=== PATIENT | female | born 1945 | race Caucasian/White ===

== ENCOUNTER 2018-08-31 10:33 | Day surgery (SDC) | payer MEDICARE, SELFPAY ==
--- NOTE | 2018-08-31 | PATH_ITS ---
[facility] Accession Number: [id number] . 01 Material submitted: . ESOPHAGEAL BIOPSY . 02 Diagnosis: Esophageal Biopsies: Multiple fragments of squamous epithelium, negative for significant atypia. Negative for intraepithelial eosinophils. [facility]/09/01/2018 . 02 Electronically signed: . Danny Greene MD, Pathologist NPI- [id number] . 01 Gross description: . ESOPHAGEAL BIOPSY: Received in formalin are multiple fragment(s) of aviles, soft tissue measuring 0.5 x 0.3 x 0.1 cm in aggregate submitted entirely in 1 cassette(s) /CKI /CKI . 02 Pathologist provided ICD-10: R13.10 . 02 CPT . 729317 Performed at: 01 [facility] [address] [place] [address], [place], [place] [id number] MD Casey Cerad MD Phone: [phone] Performed at: 02 [facility] [address] [place], [place] [id number] MD Ana Pate MD Phone: [phone]
[2018-08-31 11:24] VITALS: BP 140/75; PULSE 91; RESP 12; TEMP 36.3; O2SAT 98; BMI 32.0
--- NOTE | 2018-08-31 11:34 | P.HP_ITS ---
History of Present Illness Date Patient Seen: 08/31/18 Chief complaint: colonoscopy [id number] Narrative: 72-year-old female with history of esophageal dysphagia who is here for further evaluation and also for colon cancer screening. Please refer to our office note 07/26/2018 for further details. The patient has had no significant changes to her clinical exam since that office visit. Meds Home Medications Medication Instructions Recorded Confirmed Type atenolol 25 mg PO DAILY 08/31/18 08/31/18 History Allergies Allergy/AdvReac Type Severity Reaction Status Date / Time Sulfa (Sulfonamide Allergy Unknown Verified 08/31/18 11:46 Antibiotics) Review of Systems Review of Systems All systems reviewed & are unremarkable except as noted in HPI and below Exam Narrative Exam Narrative: General: Patient is obese, not in apparent distress Cardiovascular: Regular rate and rhythm, no murmurs, rubs, or gallops; no evidence of edema; no palpable abdominal aortic aneurysm Gastrointestinal: Normoactive bowel sounds, soft, nontender, nondistended, no rebound tenderness, no hepatosplenomegaly, no evidence of hernia Assessment & Plan Plan: Assessment/Plan Narrative: 72-year-old female with history of esophageal dysphagia was here for EGD with possible biopsies or dilation. She is also here for colon cancer screening as her last colonoscopy was performed in September 2007 and was unremarkable. Regarding the procedure(s), the risks and potential complications, benefits, and alternatives (including not doing the procedure) were discussed with the patient. The risks include but are not limited to bleeding, splenic injury, infection, perforation which may require surgical intervention, missed lesions, and adverse reactions to sedative medicines. After a question and answer period , the patient agreed to proceed with the procedure(s) and gives informed consent.
[2018-08-31] MEDS: SODIUM CHLORIDE 0.9% 1,000 ML 70 ML IV (11:45)
[2018-08-31 11:48] VITALS: BMI 32.0
[2018-08-31] MEDS: TETRACAINE/BENZOCAINE/BUTAMBEN (CETACAINE) BOTTLE 1 SPRAY TOP (12:31)
--- NOTE | 2018-08-31 12:32 | PM.OP.ENDO ---
Operative Date/Time/Diagnoses Date of procedure: 08/31/18 Procedure Notes Procedure in detail: Surgeon: Bhupendra Lujan MD Procedure: Esophagogastroduodenoscopy with biopsy and colonoscopy Preoperative diagnosis: Esophageal dysphagia; average risk colon cancer screening (last colonoscopy 2007) Postoperative diagnosis: Normal esophagus status post biopsy, 7 cm hiatal hernia, grade 2 internal hemorrhoids; esophageal dysphagia appears related to reflux given findings of her large hiatal hernia. Medications: Conscious sedation using 6 mg IV of Midazolam and 100 mcg IV of Fentanyl (total for both procedures); 5 mg IV of midazolam and 100 mcg IV of fentanyl for EGD Preanesthesia Assessment An H and P was performed/updated and the Px?s ASA class is 2. The procedure was discussed in detail with the patient. The potential risks and complications including infection, bleeding, missed lesions, perforation, need for surgery in case of perforation, prolonged hospital stay, and were explained. A brief question and answer period was allotted and once all questions were answered, informed consent was obtained. The patient was brought back to the procedure room and placed on standard monitoring. The patient?s vital signs were monitored continuously throughout the entire procedure. Prior to starting, a timeout was performed to confirm the patient?s identity, allergies, medications, and procedure. Procedure in detail The patient was placed in left lateral decubitus position and a bite block was inserted. The tip of the upper endoscope was placed into the mouth and advanced without difficulty under direct visualization into the esophagus. Esophagus: The entire esophagus appeared normal. Biopsies were taken from the mid and proximal esophagus to rule out eosinophilic esophagitis, with minimal bleeding. Stomach: There was evidence of a 7 cm hiatal hernia (34 cm to 41 cm from incisors), the gastric lumen was otherwise empty and the mucosa appeared normal Duodenum: The examined small bowel all the way to the 2nd portion of the duodenum appeared normal After the upper endoscopy, preparations were made for the colonoscopy. Once adequate sedation was obtained a JANET was performed. The digital rectal examination did not reveal any palpable lesions. The tip of the colonoscope was placed in the anal canal and advanced without difficulty all the way to the cecum which was identified by the appendiceal orifice and the ileocecal valve. The terminal ileum was intubated to distance of 5 cm from the ileocecal valve and the mucosa appeared normal. The colonoscope was brought back to cecum and careful examination of all hugo of the colon was performed with irrigation of any residual stool. The mucosa appeared normal throughout the entire colon. There was no evidence of polyps. Retroflexion was performed in the rectum which revealed grade 2 internal hemorrhoids. The patient tolerated the procedure well and will be brought back to the recovery area to be discharged once criteria are met. The prep was judged to be good and adequate to identify polyps less than 5 mm. The withdrawal time was 7 min. The total physician intraservice time was 28 min. Complications There were no complications and estimated blood loss was minimal. Recommendations Resume previous diet Anti-reflux measures at all times Continue outpatient medications Follow-up pathology results Repeat colonoscopy in 10 years for repeat screening. This would be dependent on health issues at that time Follow-up with me at our office if with persistent swallowing issues An emergency contact number was given to the patient for any complications related to the procedure
[2018-08-31] MEDS: MIDAZOLAM 5 MG/5 ML VIAL IV (12:45)
[2018-08-31] MEDS: fentaNYL 250 MCG/5 ML INJ IV (12:46)
[2018-08-31 12:59] VITALS: BP 120/65; PULSE 76; RESP 17; TEMP 37; O2SAT 97
--- NOTE | 2018-08-31 13:02 | PM.DS.1 ---
History of Present Illness Chief complaint: colonoscopy [id number] [phone] Narrative: 72-year-old female with history of esophageal dysphagia who is here for further evaluation and also for colon cancer screening. Please refer to our office note 07/26/2018 for further details. The patient has had no significant changes to her clinical exam since that office visit. Discharge Providers Discharge provider: Bhupendra Lujan MD Discharge Date: 08/31/18 Exam Vital Signs (past 8 hours): - 08/31/18 11:24 Temperature 97.4 F L Pulse Rate 91 H Respiratory Rate 12 Blood Pressure 140/75 Pulse Oximetry 98 Oxygen Delivery Method Room Air Narrative Exam Narrative: General: Patient is obese, not in apparent distress Cardiovascular: Regular rate and rhythm, no murmurs, rubs, or gallops; no evidence of edema; no palpable abdominal aortic aneurysm Gastrointestinal: Normoactive bowel sounds, soft, nontender, nondistended, no rebound tenderness, no hepatosplenomegaly, no evidence of hernia Discharge Plan Discharge Plan Patient Disposition: Home Discharge Med Rec/Prescriptions Prescriptions: Continue atenolol 25 mg Tablet 25 mg PO DAILY RF: 0 Discharge Orders: Discharge (Order); Ordered 08/31/18 Ordered By: Bhupendra Lujan Provider Discharge Instructions Diet: Diet as Tolerated Visit Report/Discharge Packet Stand Alone Forms: Surgery Discharge Discharge Data Attending Provider: Bhupendra Lujan
[2018-08-31 13:04] VITALS: BP 115/64; PULSE 74; RESP 16; O2SAT 97
[2018-08-31 13:09] VITALS: BP 119/69; PULSE 73; RESP 14; O2SAT 97
[2018-08-31 13:30] VITALS: BP 115/60; PULSE 69; RESP 16; TEMP 36.3; O2SAT 100
== END 2018-08-31 13:40 | disposition home or self-care (01) ==
PROVIDERS: Visit Provider Internal Medicine Gastroenterology
PROC: 0DJ08ZZ Inspection of Upper Intestinal Tract, Via Natural or Artificial Opening Endoscopic (ICD-10-PCS; CPT 43235; principal; 2018-08-31 12:30)
PROC: 0DJD8ZZ Inspection of Lower Intestinal Tract, Via Natural or Artificial Opening Endoscopic (ICD-10-PCS; CPT 45378; 2018-08-31 12:30)
DX: Z12.11 Encounter for screening for malignant neoplasm of colon (principal); R13.14 Dysphagia, pharyngoesophageal phase; K44.9 Diaphragmatic hernia without obstruction or gangrene; K64.1 Second degree hemorrhoids
CPT/HCPCS: 43239; 45378; 88305; J2250; J3010